=== PATIENT | male | born 1940 | race Caucasian/White ===

== ENCOUNTER 2021-07-31 19:08 | Emergency (ER) | payer MEDICARE, OTHER ==
[2021-07-31] MEDS ORDERED: Lidocaine 1% 20 ML MDV INJECT ONE (19:39)
[2021-07-31] MEDS ORDERED: Bacitracin/Neomycin/Polymyxin B Oint 28.4 GM Tube ONE (20:17)
[2021-07-31] MEDS ORDERED: Amoxicillin/Clavulanate K 875-125 MG Tab PO ONE (20:27)
[2021-07-31] MEDS ORDERED: traMADol 50 MG Tab PO ONE (20:28)
[2021-07-31 21:32] VITALS: BP 130/80; PULSE 66
== END 2021-07-31 20:55 | disposition home or self-care (01) ==
LOC: KA.ED 19:08
DX: S62.357A Nondisplaced fracture of shaft of fifth metacarpal bone, left hand, initial encounter for closed fracture (principal); S62.301A Unspecified fracture of second metacarpal bone, left hand, initial encounter for closed fracture; S62.303A Unspecified fracture of third metacarpal bone, left hand, initial encounter for closed fracture; S61.213A Laceration without foreign body of left middle finger without damage to nail, initial encounter; S61.211A Laceration without foreign body of left index finger without damage to nail, initial encounter; Z79.82 Long term (current) use of aspirin; Z79.899 Other long term (current) drug therapy; W23.0XXA Caught, crushed, jammed, or pinched between moving objects, initial encounter
CPT/HCPCS: 12005; 73130-LT; 99283-25; A9270-GY